=== PATIENT | male | born 1960 ===

== ENCOUNTER 2020-01-26 10:06 | Outpatient (CLI) | payer OTHER | END 2020-01-26 15:00 | disposition home or self-care (01) | LOC: LAB 10:06 | PROVIDERS: ATTEND Surgery | DX: R97.20 Elevated prostate specific antigen [PSA] (principal) ==

== ENCOUNTER 2020-03-15 07:07 | Outpatient (CLI) | payer OTHER | END 2020-03-15 07:26 | disposition home or self-care (01) | LOC: SONOGRAMA 07:07 | PROVIDERS: ATTEND Surgery | DX: D29.8 Benign neoplasm of other specified male genital organs (principal) ==